=== PATIENT | female | born 1980 | race Caucasian/White ===

== ENCOUNTER 2016-09-29 11:53 | Emergency (ER) | payer BC ==
[~2016-09-29] VITALS: Ht 165.1 cm; Wt 90.2 kg
[2016-09-29] MEDS ORDERED: OMEP20CA3 (12:06)
[2016-09-29] MEDS ORDERED: PARO5TAB (12:06)
[2016-09-29] MEDS ORDERED: VITA1CAP40 (12:06)
[2016-09-29] MEDS ORDERED: MONO0.25 (12:06)
[2016-09-29] MEDS ORDERED: BUSP15TA47 (12:06)
[2016-09-29] MEDS ORDERED: METOCLOPRAMIDE INJ 10MG/2ML VIAL (J2765) IV ONE (13:45)
[2016-09-29] MEDS ORDERED: KETOROLAC 30 MG/ML VIAL (J1885) IV ONE (13:45)
[2016-09-29] MEDS ORDERED: NS 1,000 ML IV ONE (13:45)
[2016-09-29] MEDS ORDERED: ACETAMINOPHEN 325 MG TAB PO ONE (14:45)
[2016-09-29] MEDS ORDERED: ONDA4TAB6 PO (15:30)
[2016-09-29] MEDS ORDERED: IBUP80TA PO (15:30)
[2016-09-29 15:42] VITALS: BP 144/88
== END 2016-09-29 15:43 | disposition home or self-care (01) ==
LOC: M ED 11:53
DX: G43.109 Migraine with aura, not intractable, without status migrainosus (principal); Z79.3 Long term (current) use of hormonal contraceptives; Z79.899 Other long term (current) drug therapy; Z88.8 Allergy status to other drugs, medicaments and biological substances
CPT/HCPCS: 96374; 96375; 99283; J1885; J2765

== ENCOUNTER → 2021-01-14 | Outpatient (REF) | payer BC ==
[~2021-01-14] MED LIST: BUSP15TA47; IBUP80TA PO; MONO0.25; OMEP1CAP73; ONDA4TAB6 PO; PARO5TAB; VITA50005
== END ==
LOC: M LAB REF 16:28
PROVIDERS: ATTEND Physician Assistant
DX: R05.9 Cough, unspecified (principal)

== ENCOUNTER → 2024-11-26 | Outpatient (REF) | payer OTHER ==
[~2024-11-26] MED LIST changes: +ONDA-282 PO; -ONDA4TAB6 PO
[2024-11-26 18:20] LABS: APPEARANCE, URINE HAZY (CLEAR); BACTERIA, URINE AUTO NEGATIVE (NEGATIVE); BILIRUBIN, URINE AUTO NEGATIVE (NEGATIVE); BLOOD, URINE BLOOD 3+ (NEGATIVE); GLUCOSE, URINE (UA) AUTO NEGATIVE (NEGATIVE); KETONE, URINE AUTO NEGATIVE (NEGATIVE); LEUKOCYTE ESTERASE, URINE AUTO NEGATIVE (NEGATIVE); MUCUS, URINE SMALL (NEGATIVE); NITRITE, URINE AUTO NEGATIVE (NEGATIVE); PROTEIN, URINE AUTO NEGATIVE (NEGATIVE); RBC, URINE AUTO 14 /HPF (0-3); SPECIFIC GRAVITY URINE AUTO 1.015 (1.002-1.035); SQUAMOUS EPITHELIAL CELL UR AU 1 /HPF (0-6); UROBILINOGEN, URINE AUTO 0.2 mg/dL (0.0-2.0); WBC, URINE AUTO 1 /HPF (0-3)
== END ==
LOC: M LAB REF 17:48
DX: N39.0 Urinary tract infection, site not specified (principal)